=== PATIENT | male | born 1965 | race Caucasian/White ===

== ENCOUNTER 2017-05-25 07:18 | Observation (INO) | payer OTHER ==
[2017-05-25] MEDS ORDERED: Aspirin Low Dose CHEW TAB* 81 MG PO ONE (07:45)
--- NOTE | 2017-05-25 08:15 | RAD ---
HISTORY: Chest pain COMPARISONS: None VIEWS: 1: frontal portable view of the chest at 7:55 AM FINDINGS: The right costophrenic angle is cut off. LINES AND TUBES: None. CARDIOMEDIASTINAL SILHOUETTE: The cardiomediastinal silhouette is normal for portable technique. PLEURA: The left costophrenic angle is sharp. No pleural abnormalities are noted. LUNG PARENCHYMA: The lungs are clear. ABDOMEN: The upper abdomen is clear. There is no subphrenic gas. BONES AND SOFT TISSUES: No bone or soft tissue abnormalities are noted. IMPRESSION: LIMITED EXAMINATION. NO ACTIVE CARDIOPULMONARY DISEASE.
[2017-05-25 08:23] LABS: Hematocrit 44 % (42-52); Hemoglobin 15.2 g/dl (14.0-18.0); Mean Corpuscular HGB Conc 34 g/dl (31-36); Mean Corpuscular Hemoglobin 30 pg (27-31); Mean Corpuscular Volume 87 fL (80-94); Mean Platelet Volume 9 um3 (7.4-10.4); Red Blood Count 5.08 10^6/ul (4.0-5.4); Red Cell Distribution Width 14 % (10.5-15); White Blood Count 6.2 10^3/ul (3.5-10.8)
[2017-05-25 08:34] LABS: Albumin 4.4 g/dL (3.2-5.2); BUN/Creatinine Ratio 9.6 (8-20); Calcium 9.1 mg/dL (8.6-10.3); EGFR African American 96.8 (>60); EGFR Non-African American 75.3 (>60); Globulin 2.7 g/dL (2-4); Potassium 4.6 mmol/L (3.5-5.0); Total Bilirubin 0.5 mg/dL (0.2-1.0); Total Protein 7.1 g/dL (6.4-8.9)
--- NOTE | 2017-05-25 09:45 | ED ---
Jw Butterfield Angela, scribed for Gallo Fleming MD on 05/25/17 at 0744 . Syncope/Near Syncope - HPI Summary HPI Summary: This pt is a 51 y/o male accompanied by his [facility] [place] [place]o feeling like passing out for 3 weeks now. Pt states "it is hard to describe" and describes a "funny" strange sensation on his chest that lasts about 30 seconds. He c/o weakness and the feeling of passing out is now more frequent than before. Pt denies dizziness, light-headedness, nausea, vomiting, palpitations, SOB. He reports daily alcohol use but denies tobacco or any other drugs. Pt was treated for HTN years ago but was taken off medications as his blood pressure returned to normal. He has not been on HTN medications for 10 years now. 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 - Onset/Duration: Lasting Weeks Timing: Intermittent Episode Lasting - seconds Aggravating Factor(s): Nothing Alleviating Factor(s): Nothing Associated Signs And Symptoms: Weakness - Allergies/Home Medications Allergies/Adverse Reactions: Allergies Allergy/AdvReac Type Severity Reaction Status Date / Time No Known Allergies Allergy Verified 11/27/13 11:29 PMH/Surg Hx/FS Hx/Imm Hx Endocrine/Hematology History: Denies: Hx Diabetes Cardiovascular History: Reports: Hx Hypertension - Surgical History Surgery Procedure, Year, and Place: L hip resurfacing Infectious Disease History: No Infectious Disease History: Denies: Traveled Outside the [place] in Last 30 Days - Family History Known Family History: Positive: Hypertension - Social History Alcohol Use: Daily Alcohol Amount: 3-4 beers/day Substance Use Type: Reports: None Smoking Status (MU): Never Smoked Tobacco Review of Systems Constitutional: Negative Eyes: Negative ENT: Negative Positive: Other - chest discomfort, "strange" feeling. Negative: Palpitations Negative: Shortness Of Breath, Cough Negative: Abdominal Pain, Vomiting, Nausea Genitourinary: Negative Musculoskeletal: Negative Skin: Negative Neurological: Other - feeling of passing out All Other Systems Reviewed And Are Negative: Yes Physical Exam Triage Information Reviewed: Yes Vital Signs On Initial Exam: Initial Vitals Temp Pulse Resp BP Pulse Ox 98.0 F 102 16 166/87 98 05/25/17 07:21 05/25/17 07:21 05/25/17 07:21 05/25/17 07:21 05/25/17 07:21 Vital Signs Reviewed: Yes Appearance: Positive: Well-Appearing, No Pain Distress Skin: Positive: Warm Head/Face: Positive: Normal Head/Face Inspection Eyes: Positive: Normal, EOMI ENT: Positive: Normal ENT inspection Neck: Positive: Supple, Nontender Respiratory/Lung Sounds: Positive: Clear to Auscultation, Breath Sounds Present Cardiovascular: Positive: RRR. Negative: Murmur Abdomen Description: Positive: Nontender Musculoskeletal: Positive: Normal, Strength/ROM Intact Neurological: Positive: Sensory/Motor Intact, Alert, Oriented to Person Place, Time, CN Intact II-III - [place] Coma Scale Best Eye Response: 4 - Spontaneous Best Motor Response: 6 - Obeys Commands Best Verbal Response: 5 - Oriented Coma Scale Total: 15 Diagnostics - Vital Signs Vital Signs Temp Pulse Resp BP Pulse Ox 05/25/17 07:32 99.8 F 95 10 151/99 97 05/25/17 07:21 98.0 F 102 16 166/87 98 - Laboratory Lab Results: Lab Results 05/25/17 05/25/17 05/25/17 Range/Units 08:07 08:07 08:07 WBC 6.2 (3.5-10.8) 10^3/ul RBC 5.08 (4.0-5.4) 10^6/ul Hgb 15.2 (14.0-18.0) g/dl Hct 44 (42-52) % MCV 87 (80-94) fL MCH 30 (27-31) pg MCHC 34 (31-36) g/dl RDW 14 (10.5-15) % Plt Count 158 (150-450) 10^3/ul MPV 9 (7.4-10.4) um3 Neut % (Auto) 71.3 (38-83) % Lymph % (Auto) 13.9 L (25-47) % [place] % (Auto) 8.2 (1-9) % Eos % (Auto) 5.7 (0-6) % Baso % (Auto) 0.9 (0-2) % Absolute Neuts (auto) 4.4 (1.5-7.7) 10^3/ul Absolute Lymphs (auto) 0.9 L (1.0-4.8) 10^3/ul Absolute Monos (auto) 0.5 (0-0.8) 10^3/ul Absolute Eos (auto) 0.4 (0-0.6) 10^3/ul Absolute Basos (auto) 0.1 (0-0.2) 10^3/ul Absolute Nucleated RBC 0.01 10^3/ul Nucleated RBC % 0.1 INR (Anticoag Therapy) (0.89-1.11) D-Dimer, Quantitative (Less Than 230) ng/mL Sodium 136 (133-145) mmol/L Potassium 4.6 (3.5-5.0) mmol/L Chloride 103 (101-111) mmol/L Carbon Dioxide 28 (22-32) mmol/L Anion Gap 5 (2-11) mmol/L BUN 10 (6-24) mg/dL Creatinine 1.04 (0.67-1.17) mg/dL Est GFR ( Amer) 96.8 (>60) Est GFR (Non-Af Amer) 75.3 (>60) BUN/Creatinine Ratio 9.6 (8-20) Glucose 115 H (70-100) mg/dL Lactic Acid 0.8 (0.5-2.0) mmol/L Calcium 9.1 (8.6-10.3) mg/dL Total Bilirubin 0.50 (0.2-1.0) mg/dL AST 21 (13-39) U/L ALT 32 (7-52) U/L Alkaline Phosphatase 82 (34-104) U/L Troponin I 0.00 (<0.04) ng/mL Total Protein 7.1 (6.4-8.9) g/dL Albumin 4.4 (3.2-5.2) g/dL Globulin 2.7 (2-4) g/dL Albumin/Globulin Ratio 1.6 (1-3) 05/25/17 Range/Units 08:07 WBC (3.5-10.8) 10^3/ul RBC (4.0-5.4) 10^6/ul Hgb (14.0-18.0) g/dl Hct (42-52) % MCV (80-94) fL MCH (27-31) pg MCHC (31-36) g/dl RDW (10.5-15) % Plt Count (150-450) 10^3/ul MPV (7.4-10.4) um3 Neut % (Auto) (38-83) % Lymph % (Auto) (25-47) % [place] % (Auto) (1-9) % Eos % (Auto) (0-6) % Baso % (Auto) (0-2) % Absolute Neuts (auto) (1.5-7.7) 10^3/ul Absolute Lymphs (auto) (1.0-4.8) 10^3/ul Absolute Monos (auto) (0-0.8) 10^3/ul Absolute Eos (auto) (0-0.6) 10^3/ul Absolute Basos (auto) (0-0.2) 10^3/ul Absolute Nucleated RBC 10^3/ul Nucleated RBC % INR (Anticoag Therapy) 0.90 (0.89-1.11) D-Dimer, Quantitative < 200 (Less Than 230) ng/mL Sodium (133-145) mmol/L Potassium (3.5-5.0) mmol/L Chloride (101-111) mmol/L Carbon Dioxide (22-32) mmol/L Anion Gap (2-11) mmol/L BUN (6-24) mg/dL Creatinine (0.67-1.17) mg/dL Est GFR ( Amer) (>60) Est GFR (Non-Af Amer) (>60) BUN/Creatinine Ratio (8-20) Glucose (70-100) mg/dL Lactic Acid (0.5-2.0) mmol/L Calcium (8.6-10.3) mg/dL Total Bilirubin (0.2-1.0) mg/dL AST (13-39) U/L ALT (7-52) U/L Alkaline Phosphatase (34-104) U/L Troponin I (<0.04) ng/mL Total Protein (6.4-8.9) g/dL Albumin (3.2-5.2) g/dL Globulin (2-4) g/dL Albumin/Globulin Ratio (1-3) Result Diagrams: 05/25/17 08:07 05/25/17 08:07 Lab Statement: Any lab studies that have been ordered have been reviewed, and results considered in the medical decision making process. - Radiology Chest XR Xray Interpretation: No Acute Changes - IMPRESSION: Limited examination. No active cardiopulmonary disease. ED physician has reviewed this radiology report and agrees. Radiology Interpretation Completed By: Radiologist - EKG 0741 Cardiac Rate: NL EKG Rhythm: Sinus Rhythm EKG Interpretation: No STEMI Re-Evaluation - Re-Evaluation First Eval Re-Evaluation Time: 08:55 Comment: I reviewed the chest XR results with the pt. Course/Dx Assessment/Plan: Pt is a 51 y/o male accompanied by his presenting to [facility] c/o feeling like passing out for 3 weeks now. Pt states "it is hard to describe" and describes a "funny" strange sensation on his chest that lasts about 30 seconds. Elevated BP noted and advised to follow up with his PCP. In the ED couse, pt was given aspirin low dose. Chest XR shows no active cardiopulmonary disease. I discussed the case with Dr. Salcedo, who will admit the pt in stable condition. - Diagnoses Provider Diagnoses: Near syncope, Hypertension - Physician Notifications Discussed Care of Patient With: Elly Salcedo Time Discussed With Above Provider: 08:58 Instructed by Provider To: Other - I discussed the pt's case with Dr. Salcedo. She has agreed to admit the pt. Discharge - Discharge Plan Condition: Stable Disposition: ADMITTED TO [facility] Referrals: Romaine Rizo MD [Primary Care Provider] - The documentation as recorded by the Jw deleon Angela accurately reflects the service I personally performed and the decisions made by me, Gallo Fleming MD.
[2017-05-25] MEDS ORDERED: Acetaminophen TAB* 325 MG PO PRN (11:05)
[2017-05-25 11:39] LABS: Magnesium 2.2 mg/dL (1.9-2.7)
--- NOTE | 2017-05-25 12:41 | HP ---
CC: Dr. Rizo * HISTORY AND PHYSICAL: DATE OF ADMISSION: 05/25/17 ATTENDING PHYSICIAN: Elly Salcedo DO * (report dictated by Cathy Chauhan NP) PRIMARY CARE PHYSICIAN: Dr. Rizo. HISTORY OF PRESENT ILLNESS: This patient is a 51-year-old relatively healthy male with no past medical history who presented to the emergency room after multiple episodes today of "feeling faint." The patient states approximately 3 weeks ago he started having these "fainting episodes." The patient denies losing consciousness. The patient initially would have 1 to 2 episodes in the morning then would feel okay the rest of the day. In this past week, he has been having over 10 episodes a day. In fact, this morning, he said he has already had over 5 episodes. Normally, he would describe these episodes as feeling like he was going to pass out. He denies any shortness of breath. He denies vision. He denies any dizziness. He states that he feels his heart "flutter." The patient states the episodes last a few seconds and then pass. The patient states that these episodes are not related to any physical activity. He denies any chest pain and he denies any trouble breathing with these episodes, but states that the episodes "take his breath away." Usually, when the episodes happen, he can sit down and it passes. This morning he had an episode while brushing his teeth and subsequently, he was at work and he had an episode. He sat down and the episode did not pass, hence he notified his who encouraged him to seek out help in the emergency room. The patient denies any cardiac history, but states that 3 years ago, he had a stress test at [facility] in [place]. The patient states he had to have these for his work. In the emergency room, the patient was found to have normal vital signs and a normal EKG. Hospice were asked to evaluate this patient for admission. The patient will be placed on observation for presyncope. PAST MEDICAL HISTORY: None. PAST SURGICAL HISTORY: Left hip resurfacing. MEDICATIONS: None. ALLERGIES: None. FAMILY HISTORY: The patient's states both his parents has hypertension. His father had diabetes. The patient denies any family history of cancer. SOCIAL HISTORY: The patient denies any tobacco use. He states he drinks 4 to 5 beers a day. Denies any illicit drug use. 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 He is . His , Cait Ramachandran, would be the surrogate decision maker in the event the patient cannot make decisions for himself. They do not have any children together. REVIEW OF SYSTEMS: I performed a 14-point review of systems. All the pertinent positives and negatives are mentioned in the history of present illness. The remaining review of systems are negative. PHYSICAL EXAMINATION APPEARANCE: The patient is alert, pleasant, appears to be in no apparent distress. VITAL SIGNS: Temperature 99.8, heart rate 85, respiratory rate 14, blood pressure 133/75, oxygen saturation 95%. HEAD, EYES, EARS, NOSE, AND THROAT: Normocephalic/atraumatic. Pupils are equal and reactive to light. Extraocular movements are intact. NECK: Neck was supple. There is no lymphadenopathy noted. RESPIRATORY: There is no accessory muscle use. Lungs were clear to auscultation. CARDIAC: S1, S2 were crisp. There were no murmurs, rubs, or gallops heard. ABDOMEN: Soft, nontender, nondistended. There were bowel sounds x4. EXTREMITIES: There was no lower extremity edema. DP and PT pulses were 2+ and symmetric. MUSCULOSKELETAL: There was no clubbing or cyanosis noted. The patient exhibited equal strength in all extremities. SKIN: There were no rashes or abnormalities seen. NEURO: Cranial nerves II through XII intact. The patient moves all extremities. Lower extremities intact to light touch. PSYCH: The patient is alert and oriented x3. LABORATORY DATA: White blood cell count 6.2, hemoglobin 15.2, hematocrit 44, platelet count 158,000. INR 0.9. D-dimer less than 200. Sodium 136, potassium 4.6, chloride 103, CO2 28, BUN 10, creatinine 1, glucose 115, lactic acid 0.8. Liver function tests within normal limits. Initial troponin was 0. IMAGING: Chest x-ray report shows no active cardiopulmonary disease. EKG from today shows sinus rhythm with a rate of 84. IMPRESSION: This is a 51-year-old male with no significant past medical history who presents to the emergency room with presyncopal-like symptoms. The patient will be placed on observation to rule out possible arrhythmia and presyncope. ASSESSMENT AND PLAN: 1. Presyncope. The patient will be placed on telemetry and will have serial troponins. The patient denies active chest pain with this episode, hence it seems less likely that this is related to cardiac disease and more likely related to an arrhythmia. The patient will have an echocardiogram to rule out any structural abnormalities. The patient will be monitored on telemetry in the hope that we can capture one of these episodes. If the patient rules out with serial troponins and echocardiogram is normal, it is likely the patient will be discharged in less than 24 hours. 2. Alcohol use. The patient's symptoms could be due to dehydration or excessive alcohol use. I will check a magnesium with these labs. I counseled the patient regarding decreasing his daily alcohol intake as it may improve these episodes. 3. Fluid, electrolytes and nutrition. The patient will have a heart healthy, no caffeine diet. 4. Code status full. 5. DVT prophylaxis. He is at moderate risk. He will have subcu heparin. TIME SPENT: Time on admission was 60 minutes, and 35 minutes were spent with the patient discussing past medical history and the events leading up to his arrival in the emergency room. CATHY CHAUHAN, ALONSO [id number]/[facility] #: [id number] LIZA
[2017-05-25] MEDS: Heparin VIAL(*) 5000 UNITS/ML VIAL (FIVE THOUSAND) SUBCUT SCH (22:26)
[2017-05-26] MEDS: Heparin VIAL(*) 5000 UNITS/ML VIAL (FIVE THOUSAND) SUBCUT SCH (08:16)
--- NOTE | 2017-05-26 09:00 | ECHO ---
Patient: CLIFFORD CASTILLO [facility] Rec#: [id number] : 1965 Date: 05/26/2017 Age: 51y Height: 182.88 cm / 72.0 in Weight: 119.29 kg / 262.9 lbs Sex: M BSA: 2.39 Room#: [facility] Admit Date#: 05/25/2017 Type: Inpatient Referring: Elly Salcedo DO Reading: Quang Rincon MD Owner Operator Tanker Truck Driver: Selina Luna RDCS CC: Romaine Rizo MD Transthoracic Echocardiogram Indication: Chest Pain, lightheadedness. BP: 125/67 HR: 78 Rhythm: NSR Findings History: HTN, ETOH use. Technical Comments: The study quality is fair. The study is technically limited due to patient body habitus. Completed at 0838. Left Ventricle: The left ventricular chamber size is normal. Mild concentric left ventricular hypertrophy is observed. Global left ventricular wall motion and contractility are within normal limits. There is normal left ventricular systolic function. The estimated ejection fraction is 55-60%. There is no consistent Doppler evidence of clinically significant diastolic dysfunction. Left Atrium: The left atrium is slightly dilated. Right Ventricle: Moderator Band present. The right ventricle is mildly dilated. The right ventricular global systolic function is normal. Right Atrium: The right atrium is moderately dilated. Aortic Valve: The aortic valve is trileaflet. The aortic valve leaflets are mildly thickened. There is no evidence of aortic regurgitation. There is no evidence of aortic stenosis. Mitral Valve: The mitral valve leaflets are mildly thickened. There is a trace of mitral regurgitation. There is no evidence of mitral stenosis. Tricuspid Valve: The tricuspid valve leaflets are normal. There is a physiologic tricuspid regurgitation. Unable to estimate the right ventricular systolic pressure. There is no tricuspid stenosis. Pulmonic Valve: The pulmonic valve appears normal. There is a trace pulmonic regurgitation. There is no pulmonic stenosis. Pericardium: There is no significant pericardial effusion. A pericardial fat pad is visualized. Aorta: There is mild dilatation of the ascending aorta. There is no dilatation of the aortic arch. There is mild dilatation of the aortic root. Pulmonary Artery: The main pulmonary artery appears normal. Venous: The inferior vena cava appears normal in size. There is an approximate 50% respiratory change in the inferior vena cava dimension. Conclusions Mild concentric left ventricular hypertrophy is observed. Global left ventricular wall motion and contractility are within normal limits. There is normal left ventricular systolic function. The right ventricle is mildly dilated. The right ventricular global systolic function is normal. No significant valvular disease: There is a trace of mitral regurgitation. There is a physiologic tricuspid regurgitation. There is a trace pulmonic regurgitation. There is mild dilatation of the ascending aorta. There is mild dilatation of the aortic root. No reports of prior studies offered for comparison Measurements Name Value Normal Range RVIDd (AP) 2D 3.8 cm (0.9 - 2.6) RVDdMajor (2D) 4.5 cm (2.2 - 4.4) RAd ISD 4CH 5.6 cm (3.4 - 4.9) RA (A4C)W 3.9 cm (2.9 - 4.6) IVSd (2D) 1.1 cm (0.6 - 1) LVPWd (2D) 1.1 cm (0.6 - 1) LVIDd (2D) 5 cm (3.6 - 5.4) LVIDs (2D) 2.3 cm - LV FS (2D) 55 % (25 - 45) Aortic Annulus 2.2 cm (1.4 - 2.6) Ao root diameter (2D) 3.7 cm (2.1 - 3.5) Ascending Ao 3.5 cm (2.1 - 3.4) Aortic arch 2.9 cm (1.8 - 3.4) LA dimension (AP) 2D 3.6 cm (2.3 - 3.8) LAd ISD 4CH 5.6 cm (2.9 - 5.3) LA ISD 4CH W 4.2 cm (2.5 - 4.5) Name Value Normal Range LA ESV SP 4CH (A/L) 60 ml - LA ESV SP 2CH (A/L) 64 ml - LA ESV BP (A/L) 63 ml - LA ESV BP (A/L) index 26.45 ml/m2 - LA ESV SP 4CH (MOD) 53 ml - LA ESV SP 2CH (MOD) 62 ml - Name Value Normal Range MV E-wave Vmax 0.63 m/sec - MV deceleration time 216 msec - MV A-wave Vmax 0.52 m/sec - MV E:A ratio 1.2 ratio - LV septal e' Vmax 0.07 m/sec - LV lateral e' Vmax 0.1 m/sec - LV E:e' septal ratio 9 ratio - LV E:e' lateral ratio 6.3 ratio - Name Value Normal Range AV Vmax 1.25 m/sec - AV VTI 24.34 cm - AV peak gradient 4.6 mmHg - AV mean gradient 3.48 mmHg - LVOT Vmax 1.12 m/sec - LVOT VTI 20.91 cm - LVOT peak gradient 5.06 mmHg - LVOT mean gradient 2.61 mmHg - VINNY Vmax 0.62 m/sec - Name Value Normal Range RAP 8 mmHg - IVC diameter 2 cm - Name Value Normal Range PV Vmax 0.74 m/sec - PV peak gradient 2.19 mmHg -
--- NOTE | 2017-05-26 12:36 | DCNOTE ---
Patient seen this morning. Denies any recurrence of his symptoms since admission. No chest pain. Has been ambulating around the hallway. On exam, RRR, s1 and s2 present, no m/g/r, no LE edema Tele showed 1 brief episode of what appeared to be atrial flutter (NCT, HR 150 with p waves visible intermittently). [id number] score of zero. Will start on low dose beta-luc. Patient will follow-up with PCP regarding further cardiac monitoring and/or adjustment of medications.
[2017-05-26 12:56] LABS: TSH (Thyroid Stimulating Horm) 0.85 mcIU/mL (0.34-5.60)
[2017-05-26] MEDS ORDERED: Metoprolol Succinate XL TAB* 25 MG PO SCH (13:00)
[2017-05-26 13:01] VITALS: BP 133/81
--- NOTE | 2017-05-27 05:43 | DS ---
CC: Dr. Rizo* DISCHARGE SUMMARY: DATE OF ADMISSION: 05/25/17 DATE OF DISCHARGE: 05/26/17 PRIMARY CARE PHYSICIAN: Dr. Rizo. PRINCIPAL DISCHARGE DIAGNOSES: 1. Palpitations. 2. Atrial flutter. STUDIES DONE DURING HOSPITALIZATION: Transthoracic echocardiogram, conclusions : Mild concentric LVH, global left ventricular wall motion and contractility are within normal limits. Normal left ventricular systolic function. Right ventricle was mildly dilated. Right ventricle global systolic function was normal. No significant valvular disease. Trace mitral regurgitation, physiologic tricuspid regurgitation, trace pulmonic regurgitation. Mild dilatation of the ascending aorta, mild dilatation of the aortic root. Chest x-ray, impression: Limited exam. No active cardiopulmonary disease. HISTORY OF PRESENT ILLNESS AND HOSPITAL SUMMARY: Please see the full history and physical by Cathy Chauhan NP, for full details. Briefly, Mr. Ramachandran is a 51- year-old man with no past medical history, who presented to the hospital with intermittent episodes of palpitations and "feeling faint." These seemed to be progressive and happening more frequently. During the hospitalization, the patient did not note any recurrence of the episodes. His troponins were trended ; they remained negative. He had an echocardiogram as above that was largely unremarkable. TSH was within normal limits. He did, however, have 1 brief episode of what appeared to be atrial flutter on telemetry. He was asymptomatic at that time. Due to this, the decision was made to start the patient on low-dose metoprolol. His CHADS2-VASc score is 0, so anticoagulation was not started. The patient was agreeable with this plan, will follow up with his PCP to determine any needs for possible further long-term monitoring of his cardiac status. DISCHARGE MEDICATION REGIMEN: Toprol-XL 25 mg daily. TIME SPENT: Total time spent on this discharge was 45 minutes. Please see the full medical record for further details. [id number]/[facility] #: [id number]
== END 2017-05-26 15:45 | disposition home or self-care (01) ==
LOC: ED 07:18 → MEDTELE 09:00
PROVIDERS: ADMIT Hospitalist; ATTEND Hospitalist
DX: R00.2 Palpitations (principal); I48.92 Unspecified atrial flutter; R55 Syncope and collapse; I10 Essential (primary) hypertension; I51.7 Cardiomegaly; I36.1 Nonrheumatic tricuspid (valve) insufficiency; Z72.89 Other problems related to lifestyle
CPT/HCPCS: 36415; 71010; 80053; 83605; 83735; 84443; 84484; 85025; 85379; 85610; 93005; 93306; 96372; 99284; A9270-GY; G0378; J1644